=== PATIENT | female | born 1960 | race Caucasian/White ===

== ENCOUNTER 2019-01-11 07:58 | Day surgery (SDC) | payer OTHER ==
[2019-01-09 10:58] VITALS: BMI 22.4
[2019-01-11 08:23] VITALS: TEMP 98.2
[2019-01-11] MEDS ORDERED: PROPOFOL 20 ML ONE ×2 (09:25)
[2019-01-11 11:11] VITALS: BP 106/68; PULSE 57
== END 2019-01-11 10:55 | disposition home or self-care (01) ==
LOC: FASU-ENDO 07:58
PROVIDERS: ATTEND Internal Medicine Gastroenterology
PROC: 0DJD8ZZ Inspection of Lower Intestinal Tract, Via Natural or Artificial Opening Endoscopic (ICD-10-PCS; principal; 2019-01-11 09:26)
DX: Z86.010 Personal history of colon polyps (principal); Z83.71 Family history of colonic polyps; K57.30 Diverticulosis of large intestine without perforation or abscess without bleeding